=== PATIENT | male | born 1945 | race Caucasian/White ===

== ENCOUNTER 2024-03-11 10:49 | Observation (INO) | payer MEDICARE ==
[~2024-03-11] VITALS: Ht 188 cm; Wt 109.2 kg
[2024-03-11] MEDS ORDERED: FentaNYL Citrate 50 MCG/ML 2 ML Injection IV ONE (11:10)
[2024-03-11] MEDS ORDERED: HYDROmorphone HCl/Pf 1MG SYR IV ONE (11:15)
[2024-03-11] MEDS ORDERED: NS 1,000 ML IV SCH (12:25)
[2024-03-11] MEDS ORDERED: Propofol 10mg/ml 20 ml Vial (Procedural) IV SCH (12:40)
[2024-03-11] MEDS ORDERED: OxyCODONE HCL 5 MG TAB PO PRN (15:55)
[2024-03-11] MEDS ORDERED: Acetaminophen 325 MG TABLET PO PRN (16:00)
[2024-03-11] MEDS ORDERED: HYDROmorphone HCl/Pf 1MG SYR IV PRN (16:00)
[2024-03-11] MEDS ORDERED: Lactated Ringer's 1,000 ML IV SCH (16:00)
[2024-03-11] MEDS ORDERED: Ondansetron HCl 2 MG / ML 2ML Vial IV PRN (16:00)
[2024-03-11] MEDS ORDERED: Ketorolac Tromethamine 15mg Vial IV PRN (16:10)
[2024-03-11] MEDS ORDERED: Lactated Ringer's 1,000 ML IV ONE (16:38)
[2024-03-11] MEDS ORDERED: Docusate Sodium 100 MG Cap PO SCH (21:00)
[2024-03-11 22:52] VITALS: BP 171/81
[2024-03-11] MEDS ORDERED: AMLO10 PO (23:44)
[2024-03-11] MEDS ORDERED: ATOR10 PO ×2 (23:45→23:46)
[2024-03-11] MEDS ORDERED: METO50 PO (23:47)
[2024-03-11] MEDS ORDERED: LOSA50 PO (23:49)
[2024-03-11] MEDS ORDERED: HYDCHL50 PO (23:50)
[2024-03-12] VITALS (10 sets, daily range): BP systolic 128–151; BP diastolic 62–95
--- NOTE | 2024-03-12 06:18 | NUR ---
Patient arrived to room from ED around 2244. Patient alert and oriented, VSS, resting comfortably in bed on room air. Patient using urinal for voids, LR @ 75 mLs/hr infusing to left AC, tolerated well. Patient anticipating surgery for hernia repair later today.
[2024-03-12] MEDS ORDERED: Lactated Ringer's 1,000 ML IV ONE (08:45)
[2024-03-12] MEDS ORDERED: AmLODIPine Besylate 5 MG Tab PO SCH (09:00)
[2024-03-12] MEDS ORDERED: Atorvastatin 10 MG Tab PO SCH (09:00)
[2024-03-12] MEDS ORDERED: Metoprolol Tartrate 25 MG Tab PO SCH (09:00)
--- NOTE | 2024-03-12 09:35 | NUR ---
PT TAKEN DOWN FOR SURGERY @0930. EKG COMPLETED AND PLACED IN CHART. METOPROLOL GIVEN PER OR STAFF. PT IN GOWN AND IV FLUSHED.
--- NOTE | 2024-03-12 09:39 | NUR ---
PT ARRIVES TO PACU [facility]IA [facility] FOR PREOP CARE AT 0935. DENIES PAIN/NAUSEA. PLEASANT & COOPERATIVE. AFEBRILE/VSS. SURGICAL PACK COMPLETE. SURGICAL HAT/PAS SLEEVES/BP CUFF IN PLACE. LR AT TKO. WARM BLANKETS PLACED. NO COMPLAINTS.
[2024-03-12] MEDS ORDERED: Bupivacaine 0.5% HCl 5 MG/ML 30MLVIAL ONE (09:53)
[2024-03-12] MEDS ORDERED: Sugammadex Sodium 200 MG/2ML SDV (100 MG/ML) ONE (10:09)
[2024-03-12] MEDS ORDERED: FentaNYL Citrate 50 MCG/ML 2 ML Injection ONE (10:09)
[2024-03-12] MEDS ORDERED: propofoL 20 ML IV ONE (10:09)
[2024-03-12] MEDS ORDERED: HYDROcodone 5-APAP 325 TAB PO PRN (10:10)
[2024-03-12] MEDS ORDERED: Rocuronium Bromide 10 MG/ML 5ML Injection IV ONE (10:10)
[2024-03-12] MEDS ORDERED: HYDROmorphone HCl/Pf 1MG SYR ONE (10:11)
[2024-03-12] MEDS ORDERED: Dexamethasone Sod Phos 10 MG/ML 1ML VIAL ONE (10:25)
[2024-03-12] MEDS ORDERED: Ondansetron HCl 2 MG / ML 2ML Vial ONE (10:25)
[2024-03-12] MEDS ORDERED: Ketorolac Tromethamine 30mg Vial ONE (10:27)
--- NOTE | 2024-03-12 10:43 | NUR ---
03/12/24 1043 Zeynep Daley NO PREOP ANTIBIOTICS ORDERED PER .
[2024-03-12] MEDS ORDERED: Norco 5-325 Ta1 EACH PO (12:33)
--- NOTE | 2024-03-12 15:01 | NUR ---
DISCHARGE NOTE PATIENT A/OX4. RETURNED FROM INGUINAL SURGERY REPAIR THIS AFTERNOON, DENIES PAIN, SCROTAL EDEMA NOTED. INCISIONS TO ABDOMEN CLEAN, DRY, WITH DERMABOND PRESENT. PATIENT EDUCATED ON LIFTING INSTRUCTIONS, FOLLOW UP CARE TO INCISION SITES AND FOLLOW UP APPOINTMENT. PATIENT WITH NO QUESTIONS AT TIME OF DISCHARGE. PATIENT WALKED TO FAMILY VEHICLE WITH STAFF AT TIME OF DISCHARGE WITH ALL BELONGINGS IN HAND. NO OTHER CONCERNS.
== END 2024-03-12 14:34 | disposition home or self-care (01) ==
LOC: ER 10:49 → ERHOLD 10:50 → MEDS 22:49 → ENPENDDIS 03-12 12:09 → MEDS 03-12 14:34
PROVIDERS: ADMIT Surgery
PROC: 8E0W4CZ Robotic Assisted Procedure of Trunk Region, Percutaneous Endoscopic Approach (ICD-10-PCS; principal; 2024-03-12 11:00)
PROC: 0YUA4JZ Supplement Bilateral Inguinal Region with Synthetic Substitute, Percutaneous Endoscopic Approach (ICD-10-PCS; principal; 2024-03-12 11:00)
DX: K40.30 Unilateral inguinal hernia, with obstruction, without gangrene, not specified as recurrent (principal); K40.90 Unilateral inguinal hernia, without obstruction or gangrene, not specified as recurrent; E78.00 Pure hypercholesterolemia, unspecified; Z79.899 Other long term (current) drug therapy; E66.9 Obesity, unspecified; Z68.30 Body mass index [BMI] 30.0-30.9, adult; Z87.891 Personal history of nicotine dependence
CPT/HCPCS: 74177; 76857; 83605; 93005; 93010; 94762; 96361; 96374-59; 96375; 99285-25; A9270; C1781; G0378; J1100; J1170; J1885; J2405; J2704; J3010; J7030; J7120; Q9967

== ENCOUNTER 2024-08-17 08:29 | Day surgery (SDC) | payer OTHER ==
[~2024-08-17] VITALS: Ht 188 cm; Wt 115.2 kg
[~2024-08-17 08:29] MED LIST: AMLO10 PO; ATOR10 PO; HYDCHL50 PO; LOSA50 PO; METO50 PO; Norco 5-325 Ta1 EACH PO
[2024-08-17] MEDS ORDERED: OxyCODONE HCL 10 MG TABCR ONE (08:43)
[2024-08-17] MEDS ORDERED: CeFAZolin Sodium 2,000 MG VIAL ONE (08:44)
[2024-08-17] MEDS ORDERED: NS 50 ML IV ONE (08:44)
[2024-08-17] MEDS ORDERED: Acetaminophen 500 MG Tab ONE (08:45)
[2024-08-17] MEDS ORDERED: Tranexamic Acid 100 ML IV ONE ×2 (08:50→13:11)
[2024-08-17] MEDS ORDERED: Midazolam HCl 1MG / ML 2ML Vial ONE (09:04)
[2024-08-17] MEDS ORDERED: EPINEPhrine HCl 1 MG/ML 1ML Amp ONE (09:05)
[2024-08-17] MEDS ORDERED: Lactated Ringer's 1,000 ML IV ONE ×2 (09:12→10:27)
[2024-08-17] MEDS ORDERED: FentaNYL Citrate 50 MCG/ML 2 ML Injection ONE (09:41)
[2024-08-17] MEDS ORDERED: Etomidate 2MG / ML 10ML Vial ONE (09:41)
[2024-08-17] MEDS ORDERED: propofoL 20 ML IV ONE (10:17)
[2024-08-17] MEDS ORDERED: Rocuronium Bromide 10 MG/ML 5ML Injection IV ONE (10:21)
[2024-08-17] MEDS ORDERED: Ondansetron HCl 2 MG / ML 2ML Vial ONE (10:22)
[2024-08-17] MEDS ORDERED: Dexamethasone Sod Phos 10 MG/ML 1ML VIAL ONE (10:22)
[2024-08-17] MEDS ORDERED: DiphenhydrAMINE HCl 50 MG/ML 1ML Vial ONE (10:24)
--- NOTE | 2024-08-17 10:43 | NUR ---
08/17/24 1043 Gen Dominguez FIRST DOSE OF TXA STARTED AT 1025 BY JAMA HERRERA.
[2024-08-17] MEDS ORDERED: Sugammadex Sodium 200 MG/2ML SDV (100 MG/ML) ONE (11:49)
[2024-08-17 13:46] VITALS: BP 142/79
== END 2024-08-17 14:50 | disposition home or self-care (01) ==
LOC: ORSCSDS 08:29
PROVIDERS: Orthopaedic Surgery
PROC: 0RRK00Z Replacement of Left Shoulder Joint with Reverse Ball and Socket Synthetic Substitute, Open Approach (ICD-10-PCS; principal; 2024-08-17 10:00)
DX: M19.012 Primary osteoarthritis, left shoulder (principal); I10 Essential (primary) hypertension; I48.91 Unspecified atrial fibrillation; E78.5 Hyperlipidemia, unspecified; Z79.899 Other long term (current) drug therapy; Z87.891 Personal history of nicotine dependence
CPT/HCPCS: 73030; A9270; C1713; C1776; C1889; J0171; J0690; J1100; J1200; J2250; J2405; J2704; J3010; J7120